=== PATIENT | female | born 1970 | race Caucasian/White ===

== ENCOUNTER 2016-10-20 17:53 | Emergency (ER) | payer OTHER ==
[2016-10-20 18:06] VITALS: PULSE 80
[2016-10-20] MEDS ORDERED: methylPREDNISolone SOD SUCCI 125 MG/2 ML VIAL IV STA (18:17)
--- NOTE | 2016-10-20 18:23 | ED ---
General Adult HPI - General Chief complaint: Shortness of Breath Stated complaint: Asthma Time Seen by Provider: 10/20/16 18:09 Source: patient Mode of arrival: ambulatory Limitations: no limitations - History of Present Illness Initial comments: Patient is a 46-year-old female with history of COPD presenting with shortness of breath for greater than a month. Patient states worse in the last several days. Patient's been trying her inhalers without relief. Patient states she's been having right lower rib pain. Patient has not taken anything for the pain as she doesn't know what's going on. Patient denies fever, chills, congestion, runny nose, sputum. Patient denies nausea, vomiting, diarrhea, dysuria. Patient denies history of DVT/PE, estrogen use, recent travel/surgeries/trauma. Patient denies smoking marijuana or tobacco past 6 years. - Related Data Home Medications Medication Instructions Recorded Confirmed Albuterol Inhaler [Ventolin Hfa 2 puff INHALATION RT-Q6H PRN 02/01/16 10/20/16 Inhaler] [id number] 1 tab PO Q4HR PRN 02/01/16 10/20/16 [Excedrin] Biotin 5 mg PO DAILY 02/01/16 10/20/16 Cyanocobalamin [Vitamin B-12 1,000 mcg SQ QMONTH 02/01/16 10/20/16 Injection] Cyclobenzaprine [Flexeril] 5 - 10 mg PO HS PRN 02/01/16 10/20/16 Ergocalciferol [Vitamin D2] 50,000 unit PO MO 02/01/16 10/20/16 HYDROcodone/APAP 7.5-325MG [[place] 1 tab PO TID PRN 02/01/16 10/20/16 7.5-325] Loratadine [Claritin] 10 mg PO DAILY 02/01/16 10/20/16 Magnesium Malate 1 tab PO TID 02/01/16 10/20/16 Metoclopramide [Reglan] 5 mg PO TID PRN 02/01/16 10/20/16 Omeprazole [PriLOSEC] 20 mg PO AC-BRKFST 02/01/16 10/20/16 Potassium 20 mg PO DAILY 02/01/16 10/20/16 Hydrochlorothiazide [Hydrodiuril] 25 mg PO DAILY 10/20/16 10/20/16 Previous Rx's Medication Instructions Recorded Butalb/Acetaminophen/Caffeine 1 - 2 cap PO Q4HR #30 cap 02/03/16 [Fioricet 50-300-40 mg Capsule] Ibuprofen [Motrin] 600 mg PO Q8HR PRN #30 tab 02/03/16 predniSONE 20 mg PO BID #10 tab 10/20/16 Allergies Allergy/AdvReac Type Severity Reaction Status Date / Time atorvastatin [From Lipitor] Allergy Rash/Hives Verified 10/20/16 19:02 doxycycline AdvReac Unknown Verified 10/20/16 19:02 erythromycin base AdvReac Unknown Verified 10/20/16 19:02 Penicillins AdvReac Unknown Verified 10/20/16 19:02 Review of Systems ROS Statement: Those systems with pertinent positive or pertinent negative responses have been documented in the HPI. Constitutional: No fever and no chills. HENT: No congestion, no rhinorrhea and no sore throat. Eyes: No discharge and no redness. Respiratory: +cough and +shortness of breath. Cardiovascular: +chest pain and no palpitations. Gastrointestinal: No nausea, no vomiting, no abdominal pain and no diarrhea. Genitourinary: No dysuria and no hematuria. Musculoskeletal: No back pain and no arthralgias. Skin: No pallor and no rash. Neurological: No dizziness and No headaches. ROS Other: All systems not noted in ROS Statement are negative. Past Medical History Past Medical History: Asthma, COPD, Fibromyalgia, GERD/Reflux History of Any Multi-Drug Resistant Organisms: None Reported, MRSA Date of last positivie culture/infection: 2005 MDRO Source:: Right Leg Past Surgical History: Cholecystectomy, Orthopedic Surgery, Tubal Ligation Additional Past Surgical History / Comment(s): HEAL SPUR REMOVED FROM RIGHT FOOT Past Anesthesia/Blood Transfusion Reactions: No Reported Reaction Past Psychological History: Anxiety Smoking Status: Former smoker Past Alcohol Use History: Occasional Past Drug Use History: Marijuana General Exam - General Exam Comments Initial Comments: Constitutional: Patient appears well-developed and well-nourished. No distress. Head: Normocephalic and atraumatic. Eyes: Conjunctivae and EOM are normal. Right eye exhibits no discharge. Left eye exhibits no discharge. No scleral icterus. Neck: Normal range of motion. Neck supple. Cardiovascular: Normal rate and regular rhythm. No murmur heard. Pulmonary/Chest: Effort normal and breath sounds normal. No respiratory distress. No wheezes. Patient with bilateral lower rib tenderness. Abdominal: Soft. No distension. There is no tenderness. There is no rebound and no guarding. Musculoskeletal: Normal range of motion. No edema or tenderness. Neurological: Patient alert and oriented to person, place, and time. Skin: Skin is warm and dry. Not diaphoretic. Nursing notes and vitals reviewed. Limitations: no limitations Course Vital Signs 10/20/16 18:04 Temperature 97.4 F L Pulse Rate 80 Respiratory 20 Rate Blood Pressure 142/74 O2 Sat by Pulse 100 Oximetry - Reevaluation(s) Reevaluation #1: 10/20/16 20:28 Patient had a complete resolution after signing Benadryl and then Toradol. Feeling better and agreeable to discharge. EKG Findings - EKG Comments: EKG Findings:: Rate 74. NSR. No ST-T wave changes. DE internal normal . QRS interval normal. QTc duration normal. Medical Decision Making - Medical Decision Making Patient's a 46-year-old female history of COPD presenting with shortness of breath and now bilateral lower rib pain. Patient concerned about the pain. She didn't try anything for the pain prior to arrival. Patient is PERC negative however with obesity concern for increased estrogen so d-dimer was obtained and negative. Patient had partial improvement with steroids and then complete resolution with Toradol. CBC, BMP unremarkable. Chest x-ray unremarkable. EKG unremarkable. Prior to discharge, patient was resting comfortably in bed. Course of stay improved. Denies pain. Discussed physical exam and diagnostic tests with patient. Questions answered and patient is agreeable to discharge with close follow up with Primary Care Physician. Instructed to return to Emergency Department if symptoms worsen. - Lab Data Result diagrams: 10/20/16 18:30 10/20/16 18:30 Lab Results 10/20/16 10/20/16 10/20/16 Range/Units 18:30 18:30 18:30 WBC 6.8 (3.8-10.6) k/uL RBC 4.31 (3.80-5.40) m/uL Hgb 14.5 (11.4-16.0) gm/dL Hct 40.9 (34.0-46.0) % MCV 94.9 (80.0-100.0) fL MCH 33.7 (25.0-35.0) pg MCHC 35.6 (31.0-37.0) g/dL RDW 13.5 (11.5-15.5) % Plt Count 280 (150-450) k/uL Neutrophils % 57 % Lymphocytes % 33 % Monocytes % 4 % Eosinophils % 2 % Basophils % 1 % Neutrophils # 3.9 (1.3-7.7) k/uL Lymphocytes # 2.2 (1.0-4.8) k/uL Monocytes # 0.3 (0-1.0) k/uL Eosinophils # 0.1 (0-0.7) k/uL Basophils # 0.1 (0-0.2) k/uL D-Dimer 0.25 (<0.60) mg/L FEU Sodium 137 (137-145) mmol/L Potassium 3.5 (3.5-5.1) mmol/L Chloride 98 (98-107) mmol/L Carbon Dioxide 29 (22-30) mmol/L Anion Gap 10 mmol/L BUN 18 H (7-17) mg/dL Creatinine 0.87 (0.52-1.04) mg/dL Est GFR (MDRD) Af Amer >60 (>60 ml/min/1.73 sqM) Est GFR (MDRD) Non-Af >60 (>60 ml/min/1.73 sqM) Glucose 97 (74-99) mg/dL Calcium 9.1 (8.4-10.2) mg/dL Magnesium 1.8 (1.6-2.3) mg/dL Disposition Clinical Impression: Chest wall pain, Pleurisy Disposition: HOME SELF-CARE Condition: Good Instructions: Pleurisy (ED), Chest Wall Pain (ED) Prescriptions: predniSONE 20 mg PO BID #10 tab Referrals: Zachariah Yuan MD [Primary Care Provider] - 1-2 days
[2016-10-20 18:41] LABS: Basophils # (A) 0.1 k/uL (0-0.2); Basophils % (A) 1 %; CH 34.2; CHCM 36.3; Eosinophils # (A) 0.1 k/uL (0-0.7); Eosinophils % (A) 2 %; HCT 40.9 % (34.0-46.0); HDW 2.96; HGB 14.5 gm/dL (11.4-16.0); Luc # (Auto) 0.27; Luc % (Auto) 4; Lymphocytes # (A) 2.2 k/uL (1.0-4.8); Lymphocytes % (A) 33 %; MCH 33.7 pg (25.0-35.0); MCHC 35.6 g/dL (31.0-37.0); MCV 94.9 fL (80.0-100.0); Mean Platelet Volume 7.4; Monocytes # (A) 0.3 k/uL (0-1.0); Monocytes % (A) 4 %; Neutrophils # (A) 3.9 k/uL (1.3-7.7); Neutrophils % (A) 57 %; RBC 4.31 m/uL (3.80-5.40); RDW 13.5 % (11.5-15.5); WBC 6.8 k/uL (3.8-10.6); WBC (Perox) 6.71
--- NOTE | 2016-10-20 18:48 | XR ---
EXAMINATION TYPE: XR chest 2V DATE OF EXAM: 10/20/2016 6:24 PM COMPARISON: 02/01/2016 HISTORY: COPD. Hypertension. Difficulty breathing. TECHNIQUE: Frontal and lateral views of the chest are obtained. FINDINGS: There is no heart failure nor confluent pneumonic infiltrate. Bony thorax is intact. There are no hilar masses. Costophrenic angles are clear. IMPRESSION: No active cardiopulmonary disease. No change.
[2016-10-20 18:50] LABS: Anion Gap 10 mmol/L; Blood Urea Nitrogen 18 mg/dL (7-17); Calcium 9.1 mg/dL (8.4-10.2); Carbon Dioxide 29 mmol/L (22-30); Chloride 98 mmol/L (98-107); Glucose 97 mg/dL (74-99); Magnesium 1.8 mg/dL (1.6-2.3); Non-African American GFR(MDRD) >60 (>60 ml/min/1.73 sqM); Potassium 3.5 mmol/L (3.5-5.1); Sodium 137 mmol/L (137-145)
[2016-10-20] MEDS ORDERED: KETOROLAC 30 MG/ML 1 ML VIAL IVP STA (19:28)
[2016-10-20 20:36] VITALS: BP 152/82; RESP 18; TEMP 97.9
== END 2016-10-20 20:39 | disposition home or self-care (01) ==
LOC: EC 17:53
DX: R09.1 Pleurisy (principal); R07.89 Other chest pain; J44.9 Chronic obstructive pulmonary disease, unspecified; J45.909 Unspecified asthma, uncomplicated; K21.9 Gastro-esophageal reflux disease without esophagitis; Z87.891 Personal history of nicotine dependence; Z86.14 Personal history of Methicillin resistant Staphylococcus aureus infection; Z88.0 Allergy status to penicillin; Z88.8 Allergy status to other drugs, medicaments and biological substances; Z88.1 Allergy status to other antibiotic agents; Z79.899 Other long term (current) drug therapy
CPT/HCPCS: 99285; 96374; 96375; 36415; 93005; 85379; 80048; 83735; 85025; 71020; J2930; J1885

== ENCOUNTER 2017-02-19 22:03 | Emergency (ER) | payer OTHER ==
[2017-02-19] MEDS ORDERED: ONDANSETRON 4 MG/2 ML VIAL IVP STA (22:49)
[2017-02-19] MEDS ORDERED: SODIUM CHLORIDE 0.9% 500 ML IV ONE (22:49)
[2017-02-19 22:56] VITALS: RESP 18
[2017-02-19 22:59] LABS: Basophils % (A) 0 %; CH 33.7; CHCM 36.6; Eosinophils # (A) 0.2 k/uL (0-0.7); Eosinophils % (A) 2 %; HCT 41.4 % (34.0-46.0); HDW 2.92; HGB 15.3 gm/dL (11.4-16.0); Luc # (Auto) 0.18; Luc % (Auto) 3; Lymphocytes # (A) 2.7 k/uL (1.0-4.8); Lymphocytes % (A) 37 %; MCH 34.2 pg (25.0-35.0); MCV 92.4 fL (80.0-100.0); Mean Platelet Volume 6.5; Monocytes # (A) 0.3 k/uL (0-1.0); Monocytes % (A) 5 %; Neutrophils # (A) 3.9 k/uL (1.3-7.7); Neutrophils % (A) 53 %; RBC 4.48 m/uL (3.80-5.40); RDW 13.2 % (11.5-15.5); WBC 7.2 k/uL (3.8-10.6)
[2017-02-19 23:10] LABS: ALT 43 U/L (9-52); AST 28 U/L (14-36); Alkaline Phosphatase 65 U/L (38-126); Anion Gap 13 mmol/L; Blood Urea Nitrogen 14 mg/dL (7-17); Calcium 9.5 mg/dL (8.4-10.2); Carbon Dioxide 26 mmol/L (22-30); Chloride 98 mmol/L (98-107); Glucose 100 mg/dL (74-99); Magnesium 1.9 mg/dL (1.6-2.3); Non-African American GFR(MDRD) >60 (>60 ml/min/1.73 sqM); Potassium 3.4 mmol/L (3.5-5.1); Sodium 137 mmol/L (137-145); Total Bilirubin 0.9 mg/dL (0.2-1.3); Total Protein 7.1 g/dL (6.3-8.2)
[2017-02-19 23:19] LABS: Creatine Kinase 124 U/L (30-135); Prothrombin Time 10.4 sec (9.0-12.0)
[2017-02-19 23:20] LABS: Partial Thromboplastin Time 22.5 sec (22.0-30.0)
--- NOTE | 2017-02-19 23:31 | XR ---
EXAM: XR Chest, 2 Views CLINICAL HISTORY: Reason: Chest Pain TECHNIQUE: Frontal and lateral views of the chest. COMPARISON: 10/20/16 radiographs. FINDINGS: Lungs: Unremarkable. No consolidation. Pleural space: Unremarkable. No effusion or pneumothorax. Heart: Unremarkable. No cardiomegaly. Mediastinum: Unremarkable. Bones/joints: Degenerative changes without acute fracture. Tubes, lines and devices: Several EKG wires and leads overlie the chest. Upper abdomen: There may be upper abdominal surgical clips as included on the lateral view only. IMPRESSION: No new acute intrathoracic abnormality is seen.
[2017-02-19 23:32] LABS: Creatine Kinase MB 1.4 ng/mL (0.0-2.4); Troponin I <0.012 ng/mL (0.000-0.034)
[2017-02-19 23:54] VITALS: BP 122/90; PULSE 65
[2017-02-19 23:57] LABS: Appearance,Urine Clear (Clear); Bilirubin,Urine Negative (Negative); Glucose,Urine (UA) Negative (Negative); Ketones,Urine Negative (Negative); Leukocyte Esterase,Urine Negative (Negative); Nitrite,Urine Negative (Negative); PH, Urine 5.5 (5.0-8.0); Protein,Urine Negative (Negative); Specific Gravity,Urine 1.016 (1.001-1.035); UA Billing (MACRO vs. MICRO) CHEM; Urobilinogen,Urine <2.0 mg/dL (<2.0)
--- NOTE | 2017-02-20 00:11 | ED ---
General Adult HPI - General Chief complaint: Chest Pain Stated complaint: Chest Pain Time Seen by Provider: 02/19/17 22:39 Source: patient Mode of arrival: wheelchair Limitations: no limitations - History of Present Illness Initial comments: 46-year-old female presenting with chief complaint of chest pain. Patient describes the pain as sharp and intermittent. She did have a mild cough. She also reports nausea without vomiting. And 3 episodes of diarrhea today which was nonbloody. Patient was at work, the air conditioner was broken and she was very uncomfortable due to the heat. She noticed some swelling in her lower legs which she gets from time to time. She also reported some lightheadedness. Patient's chest pain and lightheadedness have resolved. Denies any radiating symptoms to her chest pain. Denies shortness of breath. Patient has past medical history of hypertension, fibromyalgia, and COPD. - Related Data Home Medications Medication Instructions Recorded Confirmed Albuterol Inhaler [Ventolin Hfa 2 puff INHALATION RT-Q6H PRN 02/01/16 02/19/17 Inhaler] [id number] 1 tab PO Q4HR PRN 02/01/16 02/19/17 [Excedrin] Biotin 5 mg PO DAILY 02/01/16 02/19/17 Cyanocobalamin [Vitamin B-12 1,000 mcg SQ QMONTH 02/01/16 02/19/17 Injection] Cyclobenzaprine [Flexeril] 5 - 10 mg PO HS PRN 02/01/16 02/19/17 Ergocalciferol [Vitamin D2] 50,000 unit PO SUWE 02/01/16 02/19/17 HYDROcodone/APAP 7.5-325MG [[place] 1 tab PO TID PRN 02/01/16 02/19/17 7.5-325] Loratadine [Claritin] 10 mg PO DAILY PRN 02/01/16 02/19/17 Magnesium Malate 1 tab PO TID 02/01/16 02/19/17 Metoclopramide [Reglan] 5 mg PO TID PRN 02/01/16 02/19/17 Omeprazole [PriLOSEC] 20 mg PO AC-BRKFST PRN 02/01/16 02/19/17 Hydrochlorothiazide [Hydrodiuril] 25 mg PO DAILY 03/11/17 07/11/17 [place]/APAP/Caf/Cod [id number] 1 - 2 cap PO Q4H PRN 02/19/17 02/19/17 [Fioricet w/Cod [id number]] Metoprolol Tartrate 1 tab PO DAILY 02/19/17 02/19/17 Allergies Allergy/AdvReac Type Severity Reaction Status Date / Time atorvastatin [From Lipitor] Allergy Rash/Hives Verified 02/19/17 23:15 doxycycline AdvReac Rash/Hives Verified 02/19/17 23:15 erythromycin base AdvReac Rash/Hives Verified 02/19/17 23:15 Penicillins AdvReac Rash/Hives Verified 02/19/17 23:15 Review of Systems ROS Statement: Those systems with pertinent positive or pertinent negative responses have been documented in the HPI. ROS Other: All systems not noted in ROS Statement are negative. Past Medical History Past Medical History: Asthma, COPD, Fibromyalgia, GERD/Reflux History of Any Multi-Drug Resistant Organisms: None Reported, MRSA Date of last positivie culture/infection: 2005 MDRO Source:: Right Leg Past Surgical History: Cholecystectomy, Orthopedic Surgery, Tubal Ligation Additional Past Surgical History / Comment(s): HEAL SPUR REMOVED FROM RIGHT FOOT Past Anesthesia/Blood Transfusion Reactions: No Reported Reaction Past Psychological History: Anxiety Smoking Status: Former smoker Past Alcohol Use History: Occasional Past Drug Use History: Marijuana General Exam Limitations: no limitations General appearance: alert, in no apparent distress Head exam: Present: atraumatic, normocephalic Eye exam: Present: normal appearance, PERRL ENT exam: Present: mucous membranes moist Neck exam: Present: full ROM Respiratory exam: Present: normal lung sounds bilaterally. Absent: respiratory distress, wheezes Cardiovascular Exam: Present: regular rate, normal rhythm GI/Abdominal exam: Present: soft. Absent: distended, tenderness Extremities exam: Present: normal inspection, normal capillary refill. Absent: pedal edema Neurological exam: Present: alert, oriented X3 Psychiatric exam: Present: normal affect, normal mood Skin exam: Present: warm, dry. Absent: diaphoretic Course Vital Signs 02/19/17 02/19/17 02/19/17 22:22 22:25 22:55 Temperature 97.7 F Pulse Rate 80 69 Respiratory 18 20 18 Rate Blood Pressure 142/66 130/80 O2 Sat by Pulse 97 97 Oximetry 02/19/17 23:53 Temperature Pulse Rate 65 Respiratory 18 Rate Blood Pressure 122/90 O2 Sat by Pulse 96 Oximetry - Reevaluation(s) Reevaluation #1: 02/20/17 00:13 Results of x-ray and laboratory studies are discussed with the patient. on reevaluation she is feeling better. She has had no more nausea, no episodes of vomiting or diarrhea while in the emergency department. Chest pain is resolved. EKG Findings - EKG Comments: EKG Findings:: EKG shows normal sinus rhythm with ventricular rate 81, SC interval is 184, QRS duration is 88, QTC is 436, there is no ST segment changes , no T-wave abnormalities. Medical Decision Making - Lab Data Result diagrams: 02/19/17 22:18 02/19/17 22:18 Lab Results 02/19/17 02/19/17 02/19/17 Range/Units 22:18 22:18 22:18 WBC 7.2 (3.8-10.6) k/uL RBC 4.48 (3.80-5.40) m/uL Hgb 15.3 (11.4-16.0) gm/dL Hct 41.4 (34.0-46.0) % MCV 92.4 (80.0-100.0) fL MCH 34.2 (25.0-35.0) pg MCHC 37.0 (31.0-37.0) g/dL RDW 13.2 (11.5-15.5) % Plt Count 290 (150-450) k/uL Neutrophils % 53 % Lymphocytes % 37 % Monocytes % 5 % Eosinophils % 2 % Basophils % 0 % Neutrophils # 3.9 (1.3-7.7) k/uL Lymphocytes # 2.7 (1.0-4.8) k/uL Monocytes # 0.3 (0-1.0) k/uL Eosinophils # 0.2 (0-0.7) k/uL Basophils # 0.0 (0-0.2) k/uL PT (9.0-12.0) sec INR (<1.1) APTT (22.0-30.0) sec D-Dimer (<0.60) mg/L FEU Sodium 137 (137-145) mmol/L Potassium 3.4 L (3.5-5.1) mmol/L Chloride 98 (98-107) mmol/L Carbon Dioxide 26 (22-30) mmol/L Anion Gap 13 mmol/L BUN 14 (7-17) mg/dL Creatinine 0.80 (0.52-1.04) mg/dL Est GFR (MDRD) Af Amer >60 (>60 ml/min/1.73 sqM) Est GFR (MDRD) Non-Af >60 (>60 ml/min/1.73 sqM) Glucose 100 H (74-99) mg/dL Calcium 9.5 (8.4-10.2) mg/dL Magnesium 1.9 (1.6-2.3) mg/dL Total Bilirubin 0.9 (0.2-1.3) mg/dL AST 28 (14-36) U/L ALT 43 (9-52) U/L Alkaline Phosphatase 65 (38-126) U/L Total Creatine Kinase 124 (30-135) U/L CK-MB (CK-2) 1.4 (0.0-2.4) ng/mL CK-MB (CK-2) Rel Index 1.1 Troponin I <0.012 (0.000-0.034) ng/mL NT-Pro-B Natriuret Pep pg/mL Total Protein 7.1 (6.3-8.2) g/dL Albumin 4.3 (3.5-5.0) g/dL Urine Color Urine Appearance (Clear) Urine pH (5.0-8.0) Ur Specific [place] (1.001-1.035) Urine Protein (Negative) Urine Glucose (UA) (Negative) Urine Ketones (Negative) Urine Blood (Negative) Urine Nitrite (Negative) Urine Bilirubin (Negative) Urine Urobilinogen (<2.0) mg/dL Ur Leukocyte Esterase (Negative) 02/19/17 02/19/17 02/19/17 Range/Units 22:18 22:18 23:30 WBC (3.8-10.6) k/uL RBC (3.80-5.40) m/uL Hgb (11.4-16.0) gm/dL Hct (34.0-46.0) % MCV (80.0-100.0) fL MCH (25.0-35.0) pg MCHC (31.0-37.0) g/dL RDW (11.5-15.5) % Plt Count (150-450) k/uL Neutrophils % % Lymphocytes % % Monocytes % % Eosinophils % % Basophils % % Neutrophils # (1.3-7.7) k/uL Lymphocytes # (1.0-4.8) k/uL Monocytes # (0-1.0) k/uL Eosinophils # (0-0.7) k/uL Basophils # (0-0.2) k/uL PT 10.4 (9.0-12.0) sec INR 1.0 (<1.1) APTT 22.5 (22.0-30.0) sec D-Dimer 0.20 (<0.60) mg/L FEU Sodium (137-145) mmol/L Potassium (3.5-5.1) mmol/L Chloride (98-107) mmol/L Carbon Dioxide (22-30) mmol/L Anion Gap mmol/L BUN (7-17) mg/dL Creatinine (0.52-1.04) mg/dL Est GFR (MDRD) Af Amer (>60 ml/min/1.73 sqM) Est GFR (MDRD) Non-Af (>60 ml/min/1.73 sqM) Glucose (74-99) mg/dL Calcium (8.4-10.2) mg/dL Magnesium (1.6-2.3) mg/dL Total Bilirubin (0.2-1.3) mg/dL AST (14-36) U/L ALT (9-52) U/L Alkaline Phosphatase (38-126) U/L Total Creatine Kinase (30-135) U/L CK-MB (CK-2) (0.0-2.4) ng/mL CK-MB (CK-2) Rel Index Troponin I (0.000-0.034) ng/mL NT-Pro-B Natriuret Pep 46 pg/mL Total Protein (6.3-8.2) g/dL Albumin (3.5-5.0) g/dL Urine Color Yellow Urine Appearance Clear (Clear) Urine pH 5.5 (5.0-8.0) Ur Specific [place] 1.016 (1.001-1.035) Urine Protein Negative (Negative) Urine Glucose (UA) Negative (Negative) Urine Ketones Negative (Negative) Urine Blood Negative (Negative) Urine Nitrite Negative (Negative) Urine Bilirubin Negative (Negative) Urine Urobilinogen <2.0 (<2.0) mg/dL Ur Leukocyte Esterase Negative (Negative) Disposition Clinical Impression: Diarrhea, Heat edema Disposition: HOME SELF-CARE Condition: Good Instructions: Acute Nausea and Vomiting (ED), Acute Diarrhea (ED) Referrals: Lawrence Joy MD [Primary Care Provider] - 1-2 days Decision Date: 02/20/17 Decision Time: 00:11
[2017-02-20 00:22] VITALS: TEMP 98.3
== END 2017-02-20 00:21 | disposition home or self-care (01) ==
LOC: EC 22:03
DX: T67.7XXA Heat edema, initial encounter (principal); R19.7 Diarrhea, unspecified; R11.0 Nausea; R05 Cough; I10 Essential (primary) hypertension; Z87.891 Personal history of nicotine dependence; Z79.899 Other long term (current) drug therapy; Z88.0 Allergy status to penicillin; Z88.1 Allergy status to other antibiotic agents; Z88.8 Allergy status to other drugs, medicaments and biological substances; X30.XXXA Exposure to excessive natural heat, initial encounter; Y92.69 Other specified industrial and construction area as the place of occurrence of the external cause
CPT/HCPCS: 36415; 93005; 85379; 83880; 80053; 82550; 82553; 83735; 84484; 85025; 85610; 85730; 81003; 71020; 99285; 96374; 96361; J2405

== ENCOUNTER → 2017-04-06 | Outpatient (CLI) | payer OTHER ==
[2017-04-06 12:01] LABS: ALT 39 U/L (9-52); AST 31 U/L (14-36); Alkaline Phosphatase 67 U/L (38-126); Anion Gap 9 mmol/L; Blood Urea Nitrogen 10 mg/dL (7-17); Calcium 9.2 mg/dL (8.4-10.2); Carbon Dioxide 28 mmol/L (22-30); Chloride 102 mmol/L (98-107); Cholesterol 220 mg/dL (<200); Glucose 97 mg/dL (74-99); HDL Cholesterol 41 mg/dL (40-60); Non-African American GFR(MDRD) >60 (>60 ml/min/1.73 sqM); Potassium 4.2 mmol/L (3.5-5.1); Sodium 139 mmol/L (137-145); Total Bilirubin 0.7 mg/dL (0.2-1.3); Total Protein 6.9 g/dL (6.3-8.2)
== END | disposition home or self-care (01) ==
LOC: LABWHC1 11:21
PROVIDERS: ATTEND Internal Medicine Clinical Cardiac Electrophysiology
DX: E78.5 Hyperlipidemia, unspecified (principal); I10 Essential (primary) hypertension
CPT/HCPCS: 36415; 80053; 80061

== ENCOUNTER → 2017-09-06 | Outpatient (CLI) | payer OTHER ==
[2017-09-06 10:17] LABS: ALT 43 U/L (9-52); AST 40 U/L (14-36); Cholesterol 217 mg/dL (<200); HDL Cholesterol 38 mg/dL (40-60); LDL Cholesterol,Calculated 116 mg/dL (0-99); Triglycerides 314 mg/dL (<150)
== END | disposition home or self-care (01) ==
LOC: LABWHC1 09:34
PROVIDERS: ATTEND Nurse Practitioner Adult Health
DX: E78.1 Pure hyperglyceridemia (principal); E78.2 Mixed hyperlipidemia
CPT/HCPCS: 36415; 80061; 83721; 84450; 84460

== ENCOUNTER → 2017-10-11 | Outpatient (CLI) | payer OTHER ==
--- NOTE | 2017-10-12 08:26 | US ---
EXAMINATION TYPE: US carotid duplex BILAT DATE OF EXAM: 10/11/2017 COMPARISON: NONE CLINICAL HISTORY: R42 DIZZINESS. Headaches, dizziness EXAM MEASUREMENTS: RIGHT: Peak Systolic Velocity (PSV) cm/sec ----- Right CCA: 121.5 ----- Right ICA: 105.1 ----- Right ECA: 119.8 ICA/CCA ratio: 0.9 RIGHT: End Diastole cm/sec ----- Right CCA: 44.5 ----- Right ICA: 40.2 ----- Right ECA: 22.8 LEFT: Peak Systolic Velocity (PSV) cm/sec ----- Left CCA: 101.3 ----- Left ICA: 117.3 ----- Left ECA: 87.5 ICA/CCA ratio: 1.2 LEFT: End Diastole cm/sec ----- Left CCA: 32.5 ----- Left ICA: 56.4 ----- Left ECA: 23.7 VERTEBRALS (direction of flow): Right Vertebral: Antegrade Left Vertebral: Antegrade Rhythm: Normal Minimal plaque bilateral bifurcations. No evidence of significant stenosis or increased velocities. Velocities are approaching, but not have not reached, findings to suggest mild narrowing. IMPRESSION: No significant flow-limiting stenosis. Criteria for Assigning % of Stenosis / Diameter reduction (Estimation based on the indirect measurements of the internal carotid artery velocities (ICA PSV). 1. Normal (no stenosis)=ICA PSV < 125 cm/s: ratio < 2.0: ICA EDV<40 cm/s. 2. Less than 50% stenosis=ICA PSV < 125 cm/s: ratio < 2.0: ICA EDV<40 cm/s. 3. 50 to 69% stenosis=ICA PSV of 125 to 230 cm/s: ration 2.0 ? 4.0: ICA EDV 40-100 cm/s. 4. Greater than 70% stenosis to near occlusion= ICA PSV > 230 cm/s: ratio > 4.0: ICA EDV > 100 cm/s. 5. Near occlusion= ICA PSV velocities may be low or undetectable: variable ratio and ICA EDV. 6. Total occlusion=unable to detect flow.
== END | disposition home or self-care (01) ==
LOC: RADUSWWP 15:25
PROVIDERS: ATTEND Psychiatry & Neurology Neurology
DX: R42 Dizziness and giddiness (principal)
CPT/HCPCS: 93880

== ENCOUNTER → 2017-10-23 | Outpatient (CLI) | payer OTHER ==
--- NOTE | 2017-10-23 22:49 | MR ---
EXAMINATION TYPE: MR lumbar spine wo con DATE OF EXAM: 10/23/2017 COMPARISON: None HISTORY: 47-year-old female with low back pain TECHNIQUE: Multiplanar, multisequence images of the lumbar spine were acquired. 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 Moderate multilevel degenerative disc disease characterized by degenerated, desiccated, mildly narrow ed disc with disc bulging and vacuum phenomenon at multiple levels. Posterior annular fissure at L4-L 5. Facet arthropathy mid to lower lumbar spine. Vertebral body heights are maintained and alignment is preserved. No suspicious bone marrow replacement. Small fatty matrix hemangioma within the right L3 and L4 verte bral bodies. Conus medullaris is normal. At T12-L1, no canal or foraminal stenosis. At L1-L2, mild disc bulge mild facet degenerative change. Slight ventral impression on the thecal sac and minimal inferior foraminal narrowing on the left. At L2-L3, mild disc bulge minimally accentuates the congenital canal narrowing. Mild facet degenerati ve change. Changes result in mild left neuroforaminal stenosis. At L3-L4, there is bulging disc and facet degenerative change. Accentuation of the congenital canal n arrowing with mild to moderate spinal canal stenosis and mild right neuroforaminal stenosis. At L4-L5, there is bulging disc with hypertrophic facet arthropathy. Overall moderate spinal canal st enosis and minimal inferior left neuroforaminal narrowing. Disc material may abut the traversing bila teral L5 nerve roots. At L5-S1, there is diffuse disc bulge and facet degenerative change. Overall mild congenital spinal c anal narrowing without significant spinal canal stenosis. Small superior endplate Schmorl's node of L3 vertebral body. Few small cysts seen within the left kidney measuring up to 1.7 cm. No prevertebral or paravertebral soft tissue abnormality seen. IMPRESSION: 1. Moderate multilevel degenerative disc disease and facet arthropathy superimposed on a mild congeni yaniv spinal canal stenosis. 2. Posterior annular fissure at L4-L5. 3. Changes result in overall mild to moderate spinal canal stenosis at L3-L4, moderate at L4-L5, and mild at L5-S1. 4. Variable minimal to mild neural foraminal narrowing. No high-grade foraminal compromise. 5. Disc material at L4-L5 may abut the bilateral traversing L5 nerve roots.
--- NOTE | 2017-10-23 23:26 | MR ---
EXAMINATION TYPE: MR brain wo/w con DATE OF EXAM: 10/23/2017 COMPARISON: 02/08/2016 HISTORY: Headaches TECHNIQUE: Multiplanar, multisequence images of the brain and brainstem is performed without and with IV contras t, utilizing 12.5 ml mL intravenous Gadavist . FINDINGS: There is some mucosal thickening in the maxillary sinuses and anterior ethmoid sinuses. Klayan tricles of normal size. There is no mass effect nor midline shift. There is no sign of intracranial h emorrhage. Brainstem appears intact. Sella turcica appears normal. Corpus callosum appears normal. Gr ay-white matter structures have fairly normal signal pattern. There is no evidence of cerebral edema. There is no evidence of a cortical infarct. I see no pathologic enhancement. Optic chiasm appears no rmal. IMPRESSION: Negative MR scan of the brain. No change compared to old exam. There is stable maxillary and ethmoid sinusitis.
== END | disposition home or self-care (01) ==
LOC: RADMRIMAIN 16:33
PROVIDERS: ATTEND Psychiatry & Neurology Neurology
DX: M48.07 Spinal stenosis, lumbosacral region (principal); M99.73 Connective tissue and disc stenosis of intervertebral foramina of lumbar region; M51.36 Other intervertebral disc degeneration, lumbar region; M46.96 Unspecified inflammatory spondylopathy, lumbar region; Q76.49 Other congenital malformations of spine, not associated with scoliosis; R51 Headache; R42 Dizziness and giddiness; H53.2 Diplopia; Z88.0 Allergy status to penicillin; Z88.1 Allergy status to other antibiotic agents
CPT/HCPCS: 82565; 84520; 70553; 72148; 36415; A9581

== ENCOUNTER 2017-11-18 07:55 | Emergency (ER) | payer OTHER ==
[2017-11-18] MEDS ORDERED: IPRATROPIUM-ALBUTEROL 3 ML NEB INHALATION STA (08:18)
[2017-11-18] MEDS ORDERED: ACETAMINOPHEN TAB 500 MG TAB PO STA (08:20)
--- NOTE | 2017-11-18 08:22 | ED ---
General Adult HPI - General Chief complaint: Shortness of Breath Stated complaint: SOB Time Seen by Provider: 11/18/17 08:00 Source: patient, RN notes reviewed Mode of arrival: ambulatory Limitations: no limitations - History of Present Illness Initial comments: This is a 47-year-old female who presents emergency department stating that she has been coughing for the last few days and she's had a fever of 101 as recent as last evening. Patient states he is coughing up some sputum. Patient states she has been short of breath as well particularly when she is coughing. Patient denies any chest pain palpitations or palpitations. Patient states she does have a history of asthma and COPD. Patient states she used to be a smoker but quit 6 years ago. Patient denies any headache patient denies numbness weakness. Patient denies any abdominal pain patient denies nausea vomiting or diarrhea. - Related Data Home Medications Medication Instructions Recorded Confirmed Albuterol Inhaler [Ventolin Hfa 2 puff INHALATION RT-Q6H PRN 02/01/16 11/18/17 Inhaler] Biotin 5 mg PO DAILY 02/01/16 11/18/17 Cyclobenzaprine [Flexeril] 5 mg PO TID PRN 02/01/16 11/18/17 Ergocalciferol [Vitamin D2] 50,000 unit PO SUWE 02/01/16 11/18/17 HYDROcodone/APAP 7.5-325MG [[place] 1 tab PO TID PRN 02/01/16 11/18/17 7.5-325] Loratadine [Claritin] 10 mg PO DAILY PRN 02/01/16 11/18/17 Fenofibrate [Fenofibrate] 50 mg PO HS 11/18/17 11/18/17 Fluticasone Nasal [place] [Flonase 2 spr EA NOSTRIL DAILY PRN 11/18/17 11/18/17 Nasal [place]] Ibuprofen [Motrin] 600 mg PO Q8HR PRN 11/18/17 11/18/17 Multivitamins, Thera [Multivitamin 1 tab PO DAILY 11/18/17 11/18/17 (formulary)] Potassium Chloride ER [K-Dur 10] 10 meq PO DAILY 11/18/17 11/18/17 Ranitidine HCl [Ranitidine HCl] 150 mg PO BID 11/18/17 11/18/17 Triamterene/Hydrochlorothiazid 1 tab PO DAILY 11/18/17 11/18/17 [Triamterene-Hctz 37.5-25 mg Tb] Previous Rx's Medication Instructions Recorded Levofloxacin [Levaquin] 750 mg PO DAILY #10 tab 11/18/17 Allergies Allergy/AdvReac Type Severity Reaction Status Date / Time atorvastatin [From Lipitor] Allergy Rash/Hives Verified 11/18/17 08:59 doxycycline Allergy Rash/Hives Verified 11/18/17 08:59 erythromycin base Allergy Rash/Hives Verified 11/18/17 08:59 Penicillins Allergy Rash/Hives Verified 11/18/17 08:59 Review of Systems ROS Statement: Those systems with pertinent positive or pertinent negative responses have been documented in the HPI. ROS Other: All systems not noted in ROS Statement are negative. Past Medical History Past Medical History: Asthma, COPD, Fibromyalgia, GERD/Reflux History of Any Multi-Drug Resistant Organisms: None Reported, MRSA Date of last positivie culture/infection: 2005 MDRO Source:: Right Leg Past Surgical History: Cholecystectomy, Orthopedic Surgery, Tubal Ligation Additional Past Surgical History / Comment(s): HEAL SPUR REMOVED FROM RIGHT FOOT Past Anesthesia/Blood Transfusion Reactions: No Reported Reaction Past Psychological History: Anxiety Smoking Status: Former smoker Past Alcohol Use History: Occasional Past Drug Use History: None Reported, Marijuana General Exam - General Exam Comments Initial Comments: GENERAL: Patient is well-developed and well-nourished. Patient is nontoxic and well- hydrated and is in mild distress. ENT: Neck is soft and supple. No significant lymphadenopathy is noted. Oropharynx is clear. Moist mucous membranes. Neck has full range of motion without eliciting any pain. EYES: The sclera were anicteric and conjunctiva were pink and moist. Extraocular movements were intact and pupils were equal round and reactive to light. Eyelids were unremarkable. PULMONARY: Unlabored respirations. Good breath sounds bilaterally. Patient has some crackles in the right base. CARDIOVASCULAR: There is a regular rate and rhythm without any murmurs gallops or rubs. ABDOMEN: Soft and nontender with normal bowel sounds. No palpable organomegaly was noted. There is no palpable pulsatile mass. SKIN: Skin is clear with no lesions or rashes and otherwise unremarkable. NEUROLOGIC: Patient is alert and oriented x3. Cranial nerves II through XII are grossly intact. Motor and sensory are also intact. Normal speech, volume and content. Symmetrical smile. MUSCULOSKELETAL: Normal extremities with adequate strength and full range of motion. No lower extremity swelling or edema. No calf tenderness. LYMPHATICS: No significant lymphadenopathy is noted PSYCHIATRIC: Normal psychiatric evaluation. Limitations: no limitations Course Vital Signs 11/18/17 11/18/17 11/18/17 07:57 08:41 08:51 Temperature 99.4 F Pulse Rate 101 H 92 96 Respiratory 18 Rate Blood Pressure 152/76 O2 Sat by Pulse 97 Oximetry 11/18/17 10:15 Temperature 98.3 F Pulse Rate 87 Respiratory 18 Rate Blood Pressure 126/62 O2 Sat by Pulse 99 Oximetry Medical Decision Making - Medical Decision Making EKG shows a normal sinus rhythm at 94 bpm ND interval 288 QRSs 84 QT interval 330 QTC is 412. Patient's EKG shows no ST segment elevation or depression or T wave abnormalities are noted. Chest x-ray shows no acute abnormality. - Lab Data Result diagrams: 11/18/17 08:23 11/18/17 08:23 Lab Results 11/18/17 11/18/17 11/18/17 Range/Units 08:23 08:23 08:23 WBC 9.8 (3.8-10.6) k/uL RBC 4.27 (3.80-5.40) m/uL Hgb 14.2 (11.4-16.0) gm/dL Hct 39.7 (34.0-46.0) % MCV 93.1 (80.0-100.0) fL MCH 33.4 (25.0-35.0) pg MCHC 35.9 (31.0-37.0) g/dL RDW 13.3 (11.5-15.5) % Plt Count 280 (150-450) k/uL Neutrophils % 78 % Lymphocytes % 15 % Monocytes % 4 % Eosinophils % 1 % Basophils % 0 % Neutrophils # 7.6 (1.3-7.7) k/uL Lymphocytes # 1.4 (1.0-4.8) k/uL Monocytes # 0.4 (0-1.0) k/uL Eosinophils # 0.1 (0-0.7) k/uL Basophils # 0.0 (0-0.2) k/uL PT (9.0-12.0) sec INR (<1.2) APTT (22.0-30.0) sec D-Dimer (<0.60) mg/L FEU Sodium 139 (137-145) mmol/L Potassium 3.7 (3.5-5.1) mmol/L Chloride 101 (98-107) mmol/L Carbon Dioxide 24 (22-30) mmol/L Anion Gap 14 mmol/L BUN 9 (7-17) mg/dL Creatinine 0.73 (0.52-1.04) mg/dL Est GFR (CKD-EPI)AfAm >90 (>60 ml/min/1.73 sqM) Est GFR (CKD-EPI)NonAf >90 (>60 ml/min/1.73 sqM) Glucose 128 H (74-99) mg/dL Calcium 9.3 (8.4-10.2) mg/dL Magnesium 1.7 (1.6-2.3) mg/dL Total Bilirubin 0.8 (0.2-1.3) mg/dL AST 28 (14-36) U/L ALT 41 (9-52) U/L Alkaline Phosphatase 60 (38-126) U/L Total Creatine Kinase 76 (30-135) U/L CK-MB (CK-2) 0.9 (0.0-2.4) ng/mL CK-MB (CK-2) Rel Index 1.2 Troponin I <0.012 (0.000-0.034) ng/mL Total Protein 6.6 (6.3-8.2) g/dL Albumin 3.8 (3.5-5.0) g/dL Influenza Type A RNA (Not Detectd) Influenza Type B (PCR) (Not Detectd) 11/18/17 11/18/17 11/18/17 Range/Units 08:23 08:23 08:23 WBC (3.8-10.6) k/uL RBC (3.80-5.40) m/uL Hgb (11.4-16.0) gm/dL Hct (34.0-46.0) % MCV (80.0-100.0) fL MCH (25.0-35.0) pg MCHC (31.0-37.0) g/dL RDW (11.5-15.5) % Plt Count (150-450) k/uL Neutrophils % % Lymphocytes % % Monocytes % % Eosinophils % % Basophils % % Neutrophils # (1.3-7.7) k/uL Lymphocytes # (1.0-4.8) k/uL Monocytes # (0-1.0) k/uL Eosinophils # (0-0.7) k/uL Basophils # (0-0.2) k/uL PT 9.8 (9.0-12.0) sec INR 1.0 (<1.2) APTT 22.3 (22.0-30.0) sec D-Dimer 0.28 (<0.60) mg/L FEU Sodium (137-145) mmol/L Potassium (3.5-5.1) mmol/L Chloride (98-107) mmol/L Carbon Dioxide (22-30) mmol/L Anion Gap mmol/L BUN (7-17) mg/dL Creatinine (0.52-1.04) mg/dL Est GFR (CKD-EPI)AfAm (>60 ml/min/1.73 sqM) Est GFR (CKD-EPI)NonAf (>60 ml/min/1.73 sqM) Glucose (74-99) mg/dL Calcium (8.4-10.2) mg/dL Magnesium (1.6-2.3) mg/dL Total Bilirubin (0.2-1.3) mg/dL AST (14-36) U/L ALT (9-52) U/L Alkaline Phosphatase (38-126) U/L Total Creatine Kinase (30-135) U/L CK-MB (CK-2) (0.0-2.4) ng/mL CK-MB (CK-2) Rel Index Troponin I (0.000-0.034) ng/mL Total Protein (6.3-8.2) g/dL Albumin (3.5-5.0) g/dL Influenza Type A RNA Not Detected (Not Detectd) Influenza Type B (PCR) Not Detected (Not Detectd) Disposition Clinical Impression: Acute bronchitis Disposition: ADMITTED IP TO THIS HOSP Instructions: Acute Bronchitis (ED) Prescriptions: Levofloxacin [Levaquin] 750 mg PO DAILY #10 tab Referrals: Lawrence Joy MD [Primary Care Provider] - 1-2 days Time of Disposition: 10:48
[2017-11-18 08:35] LABS: Basophils % (A) 0 %; Eosinophils # (A) 0.1 k/uL (0-0.7); Eosinophils % (A) 1 %; HCT 39.7 % (34.0-46.0); HGB 14.2 gm/dL (11.4-16.0); Lymphocytes # (A) 1.4 k/uL (1.0-4.8); Lymphocytes % (A) 15 %; MCH 33.4 pg (25.0-35.0); MCHC 35.9 g/dL (31.0-37.0); MCV 93.1 fL (80.0-100.0); Mean Platelet Volume 6.8; Monocytes # (A) 0.4 k/uL (0-1.0); Monocytes % (A) 4 %; Neutrophils # (A) 7.6 k/uL (1.3-7.7); Neutrophils % (A) 78 %; Platelet Count 280 k/uL (150-450); RBC 4.27 m/uL (3.80-5.40); RDW 13.3 % (11.5-15.5); WBC 9.8 k/uL (3.8-10.6)
[2017-11-18 08:40] LABS: Partial Thromboplastin Time 22.3 sec (22.0-30.0); Prothrombin Time 9.8 sec (9.0-12.0)
[2017-11-18 08:41] LABS: ALT 41 U/L (9-52); AST 28 U/L (14-36); Albumin 3.8 g/dL (3.5-5.0); Alkaline Phosphatase 60 U/L (38-126); Anion Gap 14 mmol/L; Blood Urea Nitrogen 9 mg/dL (7-17); Calcium 9.3 mg/dL (8.4-10.2); Carbon Dioxide 24 mmol/L (22-30); Chloride 101 mmol/L (98-107); Glucose 128 mg/dL (74-99); Magnesium 1.7 mg/dL (1.6-2.3); Potassium 3.7 mmol/L (3.5-5.1); Sodium 139 mmol/L (137-145); Total Bilirubin 0.8 mg/dL (0.2-1.3); Total Protein 6.6 g/dL (6.3-8.2)
--- NOTE | 2017-11-18 08:52 | XR ---
EXAMINATION TYPE: XR chest 2V DATE OF EXAM: 11/18/2017 COMPARISON: 02/19/2017 HISTORY: Chest pain TECHNIQUE: Frontal and lateral views of the chest are obtained. FINDINGS: There is no focal air space opacity. No evidence for pneumothorax. No pleural effusion. The cardiac silhouette size is within normal limits. The osseous structures are grossly intact. IMPRESSION: 1. No acute cardiopulmonary process.
[2017-11-18 08:58] LABS: Creatine Kinase 76 U/L (30-135)
[2017-11-18 09:10] LABS: Creatine Kinase MB 0.9 ng/mL (0.0-2.4); Troponin I <0.012 ng/mL (0.000-0.034)
[2017-11-18] MEDS ORDERED: LEVOFLOXACIN 750 MG TAB PO STA (09:53)
[2017-11-18 10:18] VITALS: TEMP 98.3
[2017-11-18 11:00] VITALS: BP 130/82; PULSE 82; RESP 17
== END 2017-11-18 10:59 | disposition other institution (70) ==
LOC: EC 07:55
DX: J20.9 Acute bronchitis, unspecified (principal); K21.9 Gastro-esophageal reflux disease without esophagitis; Z86.14 Personal history of Methicillin resistant Staphylococcus aureus infection; Z87.891 Personal history of nicotine dependence; Z79.899 Other long term (current) drug therapy
CPT/HCPCS: 36415; 71046; 80053; 82550; 82553; 83735; 84484; 85025; 85379; 85610; 85730; 87040; 87502; 93005; 94640; 99285

== ENCOUNTER → 2019-04-01 | Outpatient (CLI) | payer OTHER ==
[2019-04-01 23:53] LABS: T4, Free (Free Thyroxine) 0.96 ng/dL (0.78-2.19)
== END | disposition home or self-care (01) ==
LOC: LABWHC1 15:12
PROVIDERS: ATTEND Internal Medicine
DX: E04.1 Nontoxic single thyroid nodule (principal)
CPT/HCPCS: 36415; 84439; 84443

== ENCOUNTER → 2019-07-01 | Outpatient (CLI) | payer OTHER ==
--- NOTE | 2019-07-01 16:58 | CT ---
EXAMINATION TYPE: CT ChestAbdPelvis w con DATE OF EXAM: 07/01/2019 COMPARISON: None. HISTORY: abdominal pain for 6 months, nausea, abnormal weight loss CT DLP: 1763.5 mGycm. Automated Exposure Control for Dose Reduction was Utilized. CONTRAST: CT scan of the thorax, abdomen and pelvis is performed with IV Contrast, patient injected with 100 mL of Isovue 300. FINDINGS: LUNGS: The lungs are grossly clear, there is no concerning parenchymal mass or nodule identified. T here is no pleural effusion or pneumothorax seen. The tracheobronchial tree is patent. MEDIASTINUM: There are no greater than 1 cm hilar or mediastinal lymph nodes. No cardiomegaly or pe ricardial effusion is seen. LIVER/GB: Cholecystectomy clips are present. PANCREAS: No significant abnormality is seen. SPLEEN: No significant abnormality is seen. ADRENALS: No significant abnormality is seen. KIDNEYS: There is occasional subcentimeter low-density lesion upper pole of both kidneys that is too small to further characterize but presumed benign. Symmetric cortical medullary uptake and excretion from both kidneys without hydronephrosis bilaterally. Simple appearing 1.7 cm cyst lower pole level l eft kidney axial image 44 series 6. BOWEL: Oral contrast reaches level of the hepatic flexure. No suspicious small or large bowel dilatat ion. Mild to moderate prominence of fecal material in the transverse and right colon. No suspicious s mall and large bowel dilatation. GENITAL ORGANS: Heterogeneous anteverted uterus with lobulation and fullness suggestive of underlying fibroids. Tubal ligation clip left adnexa noted anteriorly axial image 105. There is 4.7 x 3.8 cm lo w dense lesion left ovary axis image 99. Smaller low dense lesion right ovary. Right-sided tubal liga tion clip noted axial image 103. LYMPH NODES: No greater than 1cm abdominal or pelvic lymph nodes are appreciated. OSSEOUS STRUCTURES: Multilevel disc space narrowing and vacuum disc phenomenon in the mid to lower blair mbar spine. Facet arthropathy lower lumbar levels. OTHER: No significant additional abnormality is seen. IMPRESSION: No suspicious mass or adenopathy. Perhaps mild to moderate proximal colonic fecal stasis . No bowel obstruction. Probable uterine fibroid disease. Left greater than right ovarian cysts or cy stic lesions. Latter findings can be better evaluated with pelvic ultrasound if desired.
== END | disposition home or self-care (01) ==
LOC: RADCTMAIN 15:01
PROVIDERS: ATTEND Internal Medicine Gastroenterology
DX: N83.201 Unspecified ovarian cyst, right side (principal); R63.4 Abnormal weight loss
CPT/HCPCS: 71260; 74177; Q9967